=== PATIENT | male | born 1995 | race Caucasian/White ===

== ENCOUNTER 2016-11-23 17:30 | Emergency (ER) | payer SELFPAY ==
[~2016-11-23] VITALS: Ht 162.6 cm; Wt 81.8 kg
[2016-11-23] MEDS ORDERED: IBUPROFEN 800 MG TABLET PO ONE (18:15)
[2016-11-23 19:39] VITALS: BP 117/62
== END 2016-11-23 19:41 | disposition home or self-care (01) ==
LOC: EMS 17:36
DX: S20.211A Contusion of right front wall of thorax, initial encounter (principal); W20.8XXA Other cause of strike by thrown, projected or falling object, initial encounter; Y93.89 Activity, other specified; Y92.89 Other specified places as the place of occurrence of the external cause; Y99.8 Other external cause status
CPT/HCPCS: 71101; 99284